=== PATIENT | male | born 1970 | race Caucasian/White ===

== ENCOUNTER 2020-05-12 15:01 | Outpatient (CLI) | payer OTHER, SELFPAY ==
--- NOTE | 2020-05-12 15:15 | XRR_ITS ---
PROCEDURE INFORMATION: Exam: XR Abdomen, 1 View Exam date and time: 05/12/2020 3:35 PM Age: 50 years old Clinical indication: Condition or disease; Kidney or ureter condition; Calculus (stone) in kidney; Prior surgery; Surgery type: Appendix; Additional info: Kidney stones TECHNIQUE: Imaging protocol: XR of the abdomen. Views: Frontal supine view of the abdomen. 1 View. COMPARISON: CR XR KUB [id number] 05/08/2018 3:05 PM FINDINGS: Gastrointestinal tract: Normal. No bowel dilation. There is abundant colonic stool compatible with constipation without impaction. Unchanged phleboliths are noted in the pelvis. No nephrolithiasis. Bones/joints: Unremarkable. XR/XR KUB [id number] IMPRESSION: No acute findings. Constipation is noted.
== END 2020-05-12 15:02 | disposition home or self-care (01) ==
LOC: RAD 15:04
PROVIDERS: Family Provider Internal Medicine; PCP Internal Medicine; Visit Provider Urology
DX: N20.0 Calculus of kidney (principal); K59.00 Constipation, unspecified
CPT/HCPCS: 74018; 81001

== ENCOUNTER → 2020-07-13 07:58 | Outpatient (BNVA) | payer OTHER, SELFPAY | PROVIDERS: Family Provider Internal Medicine; PCP Internal Medicine; Visit Provider Urology | DX: N20.9 Urinary calculus, unspecified (principal) | CPT/HCPCS: 80048; 81003; 82131; 82140; 82340; 82436; 82507; 82570; 83735; 83935; 84100; 84300; 84550 ==

== ENCOUNTER → 2021-07-19 07:53 | Outpatient (BNVA) | payer OTHER, SELFPAY | PROVIDERS: Family Provider Internal Medicine; PCP Internal Medicine; Visit Provider Urology | DX: N20.9 Urinary calculus, unspecified (principal) | CPT/HCPCS: 80048; 81003; 82131; 82140; 82340; 82436; 82507; 82570; 83735; 83935; 84100; 84300; 84550 ==

== ENCOUNTER → 2021-08-09 09:23 | Outpatient (BNVA) | payer OTHER, SELFPAY | PROVIDERS: Family Provider Internal Medicine; PCP Internal Medicine; Visit Provider Urology | DX: N20.9 Urinary calculus, unspecified (principal) | CPT/HCPCS: 81003; 82131; 82140; 82340; 82436; 82507; 82570; 83735; 83935; 84300 ==

== ENCOUNTER 2021-09-21 14:49 | Outpatient (CLI) | payer OTHER, SELFPAY ==
--- NOTE | 2021-09-21 15:15 | XR_ITS ---
WS: [id number] Exam: XR KUB [id number] Date/Time of Exam: 09/21/2021 3:04 PM Reason For Exam: UROLITHIASIS Comparison 05/12/2020. No bowel obstruction or free air. No calcifications noted in the region of the kidneys. Postoperative changes in the right abdomen. Nonspecific pelvic calcifications. Bony structures are intact. No sign of organ enlargement. Moderate amount stool in the colon. XR/XR KUB [id number] IMPRESSION: 1. No acute abdominal finding. No calcifications seen in the region of the kidn eys.
== END 2021-09-21 14:50 | disposition home or self-care (01) ==
LOC: RAD 14:51
PROVIDERS: PCP Internal Medicine; Visit Provider Urology
DX: N20.9 Urinary calculus, unspecified (principal)
CPT/HCPCS: 74018; 81003

== ENCOUNTER 2022-09-22 11:50 | Outpatient (CLI) | payer OTHER, SELFPAY ==
--- NOTE | 2022-09-22 11:55 | XR_ITS ---
WS: [id number] Exam: XR KUB [id number] Date/Time of Exam: 09/22/2022 11:55 AM Reason For Exam: UROLITHIASIS Comparison 09/21/2021. No bowel obstruction or free air. No sign of organ enlargement. No calcifications noted in the region of the kidneys. Surgical sutures in the right abdomen. Numerous nonspecific pelvic calcifications. R egional bony structures are intact. Degenerative changes of the lower lumbar spine. XR/XR KUB [id number] IMPRESSION: 1. No acute abdominal finding. No change.
== END 2022-09-22 11:51 | disposition home or self-care (01) ==
LOC: RAD 11:52
PROVIDERS: PCP Family Medicine; Visit Provider Urology
DX: N20.9 Urinary calculus, unspecified (principal)
CPT/HCPCS: 74018; 81003

== ENCOUNTER 2023-08-11 05:54 | Day surgery (SDC) | payer OTHER, SELFPAY ==
[2023-08-11 06:03] VITALS: BP 164/106; PULSE 94; RESP 18; TEMP 36.4; O2SAT 97
[2023-08-11 06:04] VITALS: BMI 29.1
[2023-08-11 06:15] LABS: Glucose Point of Care 163 mg/dL (70-110)
[2023-08-11] MEDS: sodium chloride 0.9% 1,000 ML 30 ML IV (06:25)
--- NOTE | 2023-08-11 06:27 | P.ANESASSM_ITS ---
Pre-Anesthetic Assessment Height/Weight: Height 1.83 m Weight 97.522 kg Temp Pulse Resp BP Pulse Ox 97.6 F 94 18 164/106 97 08/11/23 06:03 08/11/23 06:03 08/11/23 06:03 08/11/23 06:03 08/11/23 06:03 Preop Diagnosis: Screening Operation Date: 08/11/23 07:00 Proposed Procedures p 26090 colon, G0121 screen colon A risk Z12.11(Not Applicable) - Estiven Ruth DO Familial anesthetic complications: None Was Beta Krish taken within 24 hours: N/A Was Clonidine taken within 24 hours: N/A Last intake: Intake Last Liquid Date 08/10/23 Last Liquid Time 20:00 Last Solid Date 08/09/23 Social No alcohol and No tobacco Exam alert, oriented x 3, clear to auscultation bilaterally and regular rate & rhythm Airway Submandibular: within normal limits Cervical ROM: within normal limits Mallampati: Class II Dentition: full History/ROS No significant history except as noted and No significant complaints Pulmonary None reported CV/HEM None reported Stones Hepatic None reported GI Gastroesophageal Reflux Disease (Food based) Metabolic Diabetes Mellitus [facility] [place] Lower Back Pain and Osteoarthritis/DJD Neuropsych None reported Anesthetic Plan ASA status: 2 Anesthesia: Anesthesia Evaluation, General and MAC Risk of > 500 ml blood loss (7ml/kg in children): No Medications/Allergies Home Medications Medication Instructions Recorded Confirmed Last Taken Type metformin 500 mg tablet,extended 2,000 mg PO DAILY #360 tabs 09/09/22 08/09/23 08/10/23 Rx release 24 hr dapagliflozin propanediol 10 mg 10 mg PO DAILY #90 tabs 06/08/23 08/09/23 08/10/23 Rx tablet (Farxiga) allopurinol 300 mg tablet 300 mg PO DAILY 08/09/23 08/09/23 08/10/23 History potassium citrate 10 mEq (1,080 10 meq PO DAILY 08/09/23 08/09/23 08/10/23 History mg) tablet,extended release Allergies Allergy/AdvReac Type Severity Reaction Status Date / Time No Known Allergies Allergy Verified 08/11/23 06:01 Current Medications Generic Name Dose Route Start Last Admin Trade Name Freq PRN Reason Stop Dose Admin Sodium Chloride 1,000 mls @ 30 mls/hr 08/11/23 06:00 08/11/23 06:25 Sodium Chloride 0.9% IV 08/12/23 05:59 30 mls/hr .Q24H PAT Administration PFSH Anesthesia Medical History DM2 (diabetes mellitus, type 2) History of colon polyps Hypercalciuria Hyperuricosuria Lumbar disc disease Positive QuantiFERON-TB Gold test Urolithiasis Surgical History History of appendectomy History of rotator cuff surgery History of surgery on left wrist Family History Father Diabetes CAD (coronary artery disease) Mother , AT AGE 48 Cancer BREAST Other Hypertension Social History Smoking and tobacco/nicotine status: never used tobacco/nicotine Alcohol intake: current Alcohol intake frequency: holidays/special occasions only Adopted: No Caregiver/support person: No Lives independently: No Household members: spouse Marital status: Current occupational status: employed Data Anesthesia Cardiac Studies: No Data to Display
--- NOTE | 2023-08-11 06:52 | PM.HP ---
Providers/Chief Complaint Primary Care Provider: Filiberto Alvarado MD Chief Complaint: Z12.11 History of Present Illness Mark Schafer is a 53 year old male Review of Systems General: Reports: 10 or more systems reviewed and unremarkable except in HPI and below Medications/Allergies Home Medications Medication Instructions Recorded Confirmed Last Taken Type metformin 500 mg tablet,extended 2,000 mg PO DAILY #360 tabs 09/09/22 08/09/23 08/10/23 Rx release 24 hr dapagliflozin propanediol 10 mg 10 mg PO DAILY #90 tabs 06/08/23 08/09/23 08/10/23 Rx tablet (Farxiga) allopurinol 300 mg tablet 300 mg PO DAILY 08/09/23 08/09/23 08/10/23 History potassium citrate 10 mEq (1,080 10 meq PO DAILY 08/09/23 08/09/23 08/10/23 History mg) tablet,extended release Allergies Allergy/AdvReac Type Severity Reaction Status Date / Time No Known Allergies Allergy Verified 08/11/23 06:01 PFSH Acute PFSH: Medical History DM2 (diabetes mellitus, type 2) History of colon polyps Hypercalciuria Hyperuricosuria Lumbar disc disease Positive QuantiFERON-TB Gold test Urolithiasis Surgical History History of appendectomy History of rotator cuff surgery History of surgery on left wrist Family History Father Diabetes CAD (coronary artery disease) Mother , AT AGE 48 Cancer BREAST Other Hypertension Social History Smoking and tobacco/nicotine status: never used tobacco/nicotine Alcohol intake: current Alcohol intake frequency: holidays/special occasions only Adopted: No Caregiver/support person: No Lives independently: No Household members: spouse Marital status: Current occupational status: employed Vitals/I&O/Wt Last Vital Signs Temp 97.6 F 08/11/23 06:03 Pulse 94 08/11/23 06:03 Resp 18 08/11/23 06:03 BP 164/106 08/11/23 06:03 Pulse Ox 97 08/11/23 06:03 Weight last 48 hrs Weight 215 lb A&P Assessment and plan (1) Colon cancer screening: Plan Colonoscopy Attestations Medical Necessity Statement*: Home Coding Level of Care Code Acute Code for Chg Fwd Diagnoses Colon cancer screening Z12.11
[2023-08-11 07:13] VITALS: BP 136/84; PULSE 86; RESP 12; TEMP 36.6; O2SAT 100
[2023-08-11 07:26] VITALS: BP 111/77; PULSE 79; RESP 16; O2SAT 97
--- NOTE | 2023-08-11 12:42 | ANE.PACU2 ---
Inpatient post-anesthesia follow up: Airway intact: Yes Vital signs: Temperature 97.8 F Pulse Rate 79 Respiratory Rate 16 Blood Pressure 111/77 Pulse Oximetry 97 Oxygen Delivery Me thod Room Air Oxygen Flow Rate Fraction of Inspir ed Oxygen Hydration adequate: Yes Nausea and vomiting: No Pain level: 2 Mental status: Baseline
== END 2023-08-11 07:39 | disposition home or self-care (01) ==
PROVIDERS: PCP Family Medicine; Visit Provider Surgery
PROC: 0DJD8ZZ Inspection of Lower Intestinal Tract, Via Natural or Artificial Opening Endoscopic (ICD-10-PCS; CPT 45378; principal; 2023-08-11 07:00)
DX: Z12.11 Encounter for screening for malignant neoplasm of colon (principal); E11.9 Type 2 diabetes mellitus without complications; K21.9 Gastro-esophageal reflux disease without esophagitis; Z79.84 Long term (current) use of oral hypoglycemic drugs; Z86.010 Personal history of colon polyps
CPT/HCPCS: 36416; 45378; 82962; J2704; J7030